=== PATIENT | female | born 2000 | race Asian ===

== ENCOUNTER 2018-05-20 19:23 | Outpatient (CLI) | payer MEDICAID ==
[2018-05-20] MEDS ORDERED: LACTATED RINGERS 500 ML IV ONE (19:54)
[2018-05-20] MEDS ORDERED: LACTATED RINGERS 1,000 ML IV ONE (19:58)
[2018-05-20 20:49] LABS: Bilirubin,Urine NEG (Negative); Blood,Urine NEG (Negative); Color,Urine Yellow (Yellow); Mucus,Urine FEW /HPF; Protein,Urine <15 mg/dL mg/dL (Negative)
[2018-05-20] MEDS ORDERED: PERCOCET 5/325 PO PRN (20:58)
[2018-05-20] MEDS ORDERED: PHENERGAN PO PRN (20:58)
[2018-05-20] MEDS ORDERED: XYLOCAINE 1% MPF 5 mL INFILTRATI ONE (21:31)
[2018-05-20] MEDS ORDERED: ROCEPHIN IM ONE (21:32)
== END 2018-05-20 22:17 | disposition home or self-care (01) ==
LOC: TRG 19:23
PROVIDERS: ATTEND Obstetrics & Gynecology
DX: O26.893 Other specified pregnancy related conditions, third trimester (principal); R10.9 Unspecified abdominal pain; Z3A.35 35 weeks gestation of pregnancy; Z87.891 Personal history of nicotine dependence
CPT/HCPCS: 81001; J0696; Q0169

== ENCOUNTER 2022-01-08 12:32 | Emergency (ER) | payer MEDICAID ==
[2022-01-08 12:39] VITALS: BP 111/67
[2022-01-08 13:02] LABS: Hematocrit 36.6 % (30.3-42.9); Hemoglobin 12.3 gm/dl (10.1-14.3); Mean Corpuscular HGB Conc 34 % (30-34); Mean Corpuscular Volume 87 fl (79-97); Platelet Count 225 K/mm3 (140-440); Red Blood Count 4.23 M/mm3 (3.65-5.03); Red Cell Distribution Width 13.2 % (13.2-15.2)
[2022-01-08 13:18] LABS: Blood Urea Nitrogen 11 mg/dL (7-17); Calcium 8.9 mg/dL (8.4-10.2); Hemolysis Index 5
[2022-01-08 13:22] LABS: BUN/Creatinine Ratio 16
--- NOTE | 2022-01-08 14:38 | Ultrasound Report ---
OB Ultrasound HISTORY: vag bleed in preg. TECHNIQUE: Grayscale and color imaging performed. COMPARISON: None FINDINGS: Uterus measures 7.4 x 3.0 x 4.3 cm with endometrial echocomplex measuring 4 mm. No intraute rine gestation identified. Right ovary measures 2.7 x 1.1 x 1.9 cm and the left measures 2.7 x 1.6 x 1.4 cm. No pelvic free flui d. There is a 1.3 cm cyst in the left ovary which is most likely functional. IMPRESSION: No intrauterine gestation identified. Correlate with beta hCG level and repeat pelvic ult rasound when clinically necessary. No acute abnormality. Signer Name: Conor Weiner MD Signed: 01/08/2022 2:34 PM Workstation Name: [id number]
--- NOTE | 2022-01-08 14:41 | Emergency Department Report ---
ED Female HPI - General Chief complaint: Vaginal Bleeding Stated complaint: VAG BLEEDING/POSS PREG Time Seen by Provider: 01/08/22 13:12 Source: patient Mode of arrival: Ambulatory Limitations: No Limitations - History of Present Illness Initial comments: Patient is a 21-year-old that comes to the emergency room with vaginal bleeding during . She states that she started having spotting yesterday. She states that her last menstrual period was December 01. She states that her fianc was found in bed due to a drug overdose yesterday. That is when her vaginal bleeding started. She states that it is light. She denies any discharge. Denies any back pain. Denies any abdominal pain. Denies any fever or chills. Patient took a test last week that was positive. She has not yet seen her FLAP PRESSER. She states that she sees someone in [facility] for obstetrics and gynecology. She is ambulatory, taking p.o. and in no acute distress on arrival to the ER. Complaint: vaginal bleeding Worsens with: none Are you Now?: Yes - Related Data Sexually active: Yes : 3 Para: 3 Allergies Allergy/AdvReac Type Severity Reaction Status Date / Time No Known Allergies Allergy Verified 01/08/22 12:39 ED Review of Systems ROS: Stated complaint: VAG BLEEDING/POSS PREG Other details as noted in HPI Comment: All other systems reviewed and negative ED Past Medical Hx - Past Medical History Previous Medical History?: Yes Hx Hypertension: No Hx Diabetes: No Hx Deep Vein Thrombosis: No Hx Renal Disease: No Hx Sickle Cell Disease: No (trait) Hx Seizures: No Hx Asthma: No Hx HIV: No - Surgical History Past Surgical History?: No - Family History Family history: no significant - Social History Smoking Status: Former Smoker Substance Use Type: Marijuana ED Physical Exam - General Limitations: No Limitations General appearance: alert, in no apparent distress - Head Head exam: Present: atraumatic, normocephalic - Eye Eye exam: Present: normal appearance - ENT ENT exam: Present: mucous membranes moist - Neck Neck exam: Present: normal inspection - Respiratory Respiratory exam: Present: normal lung sounds bilaterally. Absent: respiratory distress - Cardiovascular Cardiovascular Exam: Present: regular rate, normal rhythm. Absent: systolic murmur, diastolic murmur, rubs, gallop - GI/Abdominal GI/Abdominal exam: Present: soft, normal bowel sounds - Extremities Exam Extremities exam: Present: normal inspection - Back Exam Back exam: Present: normal inspection - Neurological Exam Neurological exam: Present: alert, oriented X3 - Psychiatric Psychiatric exam: Present: normal affect, normal mood - Skin Skin exam: Present: warm, dry, intact, normal color. Absent: rash ED Course Vital Signs 01/08/22 12:37 Temperature 99 F Pulse Rate 100 H Respiratory 18 Rate Blood Pressure 111/67 [Right] O2 Sat by Pulse 99 Oximetry ED Medical Decision Making - Lab Data Result diagrams: 01/08/22 12:49 01/08/22 12:49 - Radiology Data Radiology results: report reviewed, image reviewed See report - Medical Decision Making Labs 01/08/22 01/08/22 01/08/22 12:49 12:49 12:49 WBC 5.8 RBC 4.23 Hgb 12.3 Hct 36.6 MCV 87 MCH 29 MCHC 34 RDW 13.2 Plt Count 225 Sodium 138 Potassium 3.5 L Chloride 105.2 Carbon Dioxide 24 Anion Gap 12 BUN 11 Creatinine 0.7 Estimated GFR > 60 BUN/Creatinine Ratio 16 Glucose 99 Calcium 8.9 HCG, Quant 31.97 H Blood Type Ord Rhogam Gestat Weeks 01/08/22 13:25 WBC RBC Hgb Hct MCV MCH MCHC RDW Plt Count Sodium Potassium Chloride Carbon Dioxide Anion Gap BUN Creatinine Estimated GFR BUN/Creatinine Ratio Glucose Calcium HCG, Quant Blood Type O POSITIVE Ord Rhogam Gestat Weeks Rh pos Vital Signs 01/08/22 12:37 Temperature 99 F Pulse Rate 100 H Respiratory 18 Rate Blood Pressure 111/67 [Right] O2 Sat by Pulse 99 Oximetry Labs noted. Rh+ Ultrasound noted Patient educated on findings of lab work. She understands she needs to follow- up with her FLAP PRESSER in 48 hours for repeat labs. On discharge patient is ambulatory, taking p.o., and no pain, no acute distress. Patient being discharged home with discharge plan of care including diet, activity, medication and follow-up. She verbalizes understanding of plan of care - Differential Diagnosis Rule out miscarriage, Critical care attestation.: If time is entered above; I have spent that time in minutes in the direct care of this critically ill patient, excluding procedure time. ED Disposition Clinical Impression: Vaginal bleeding during Disposition: HOME / SELF CARE / HOMELESS Is pt being admited?: No Does the pt Need Aspirin: No Condition: Stable Instructions: Threatened Miscarriage Additional Instructions: Avoid drugs, cigarettes and alcohol. Tylenol can be used for pain Follow-up with FLAP [facility]ESSER in 48 hours for recheck as we discussed I have given you referral below if this is more convenient Take this paperwork with you so that he has had to refer to Stay well-hydrated with water Referrals: SARAH FRANCO MD [Staff Physician] - 3-5 Days Time of Disposition: 14:48
== END 2022-01-08 18:53 | disposition home or self-care (01) ==
LOC: ED 12:32
DX: O20.9 Hemorrhage in early pregnancy, unspecified (principal); Z3A.00 Weeks of gestation of pregnancy not specified; Z87.891 Personal history of nicotine dependence
CPT/HCPCS: 36415; 76801; 80048; 84702; 85027; 86900; 86901; 99283